=== PATIENT | male | born 1995 | race African-American/Black ===

== ENCOUNTER 2019-11-05 23:43 | Emergency (ER) | payer SELFPAY ==
[~2019-11-05] VITALS: Ht 177.8 cm; Wt 79.5 kg
[2019-11-06] MEDS ORDERED: HYDROCODONE/ACETAMINOPHEN 5/325MG TABLET PO STA (00:41)
[2019-11-06 02:46] VITALS: BP 129/78
== END 2019-11-06 03:47 | disposition home or self-care (01) ==
LOC: ER 23:43
DX: S90.112A Contusion of left great toe without damage to nail, initial encounter (principal); M79.675 Pain in left toe(s); W22.09XA Striking against other stationary object, initial encounter; Y93.01 Activity, walking, marching and hiking; Y92.9 Unspecified place or not applicable
CPT/HCPCS: 73630; 99283; Z7610